=== PATIENT | female | born 1995 | race Caucasian/White ===

== ENCOUNTER 2019-01-21 15:57 | Inpatient (IN) | payer OTHER ==
[2019-01-21 17:00] LABS: Hematocrit 31 % (35-47); Hemoglobin 10.5 g/dL (12.0-16.0); Mean Corpuscular HGB Conc 34 g/dL (31-36); Mean Corpuscular Hemoglobin 29 pg (27-31); Mean Corpuscular Volume 85 fL (80-97); Mean Platelet Volume 7.1 fL (7.4-10.4); Platelet Count 371 10^3/uL (150-450); Red Blood Count 3.63 10^6 /uL (3.70-4.87); Red Cell Distribution Width 14 % (10.5-15); White Blood Count 13.2 10^3/uL (3.5-10.8)
[2019-01-21] MEDS ORDERED: ceFOXitin 2 GM IVPREMIX* 2 GM/50 ML BAG IVPB ONE (17:15)
[2019-01-21] MEDS ORDERED: Buffered Lidocaine 1% SYRIN* 1 ML/SYRINGE INTRADERM ONE (17:15)
[2019-01-21] MEDS ORDERED: Lactated Ringers 1000 ML Bag* 1,000 ML IV ONE (17:15)
[2019-01-21] MEDS ORDERED: ceFOXitin 2 GM IVPREMIX* 2 GM/50 ML BAG ONE (17:23)
[2019-01-21] MEDS ORDERED: Famotidine IV* 10 MG/ML 2 ML (20 mg) ONE (17:23)
--- NOTE | 2019-01-21 17:24 | HP ---
General Information - Reason for Visit cholestasis / desires repeat section desires permanent sterility - General Information Maternal Age: 23 Grav: 3 Para: 2 SAB: 0 IEA: 0 Estimated Due Date: 02/13/19 Determined By: Early Ultrasound Gestational Age in Weeks/Days: 36 5/7 weeks Maternal Blood Type and Rh: A Positive - Results this Serology/RPR Result: Non-Reactive Rubella Result: Immune HBsAg Result: Negative HIV Result: Negative GBS Culture Result: Negative Past Medical History Pertinent Past Medical History: See Records Pertinent Past Surgical History: See Records Pertinent Family History: See Records - Antepartal Records Antepartal Records: Reviewed, Complicated by: - Hep C / cholestasis Review of Systems Constitutional: Comfortable CV Complaint: No Respiratory: Shortness of Breath: No Gastrointestinal: No Nausea/Vomiting Genitourinary: No Dysuria, No Bleeding, No Leaking Fluid Musculoskeletal: No Complaint Neurological: No Headache Movement: Normal Exam Allergies/Adverse Reactions: Allergies MS Meperidine [From Demerol HCl] Allergy (Severe, Verified 06/20/16 17:04) BREATING STOPED AND HR DROPS. Vital Signs 01/21/19 16:10 Temperature 98.6 F Pulse Rate 91 Respiratory 18 Rate Blood Pressure 132/72 (mmHg) O2 Sat by Pulse 99 Oximetry Lab Values - Entire Visit: Laboratory Tests 01/21/19 01/21/19 16:45 16:45 WBC 13.2 H RBC 3.63 L Hgb 10.5 L Hct 31 L MCV 85 MCH 29 MCHC 34 RDW 14 Plt Count 371 MPV 7.1 L Blood Type A Positive - Measurements Height: 4 ft 11 in Weight: 160 lb Weight in lbs: 160.344116 Body Mass Index (BMI): 32.3 Pre- Weight: 160 lb Weight Gained This : 0 lbs and 0 ozs - Exam Breast: Breast Exam Deferred CVA: No CVA Tenderness Extremities: No Edema Heart: Normal Rhythm/Heart Sounds HEENT: No Significant Findings Lungs: Clear Bilaterally Rectal: Rectal Exam Deferred Reflexes: DTR 2+ Thyroid: No Thyromegaly - Abdominal Exam Abdomen Exam: Non-Tender - Ultrasound/Biophysical Profile Ultrasound Status: Not Done Targeted Exam Findings Presenting Part: Vertex Membrane Status: Intact EFM Findings - External Monitor Findings Baseline Heart Rate: 140 External Monitor Findings: Accelerations Present, No Pattern of Variable or Late Decelerations, Variability Moderate Contractions: None Assessment/Plan - Assessment Pt 23 yo with cholestatis of and desires permanent sterility with repeat section . Pt Accepts risk associated with surgery to include but not limited to infection bleeding damage to internal organs , pain scarring , failure of tubal ligation with risk of echoic . Consent form personally reviewed and signed together .All QUESTIONS ANSWERED. - Plan Plan: Antibiotic Prophylaxis, C/S Delivery
[2019-01-21 17:30] LABS: Urine Benzodiazepine Screen None Detected (None Detect); Urine Opiates Screen None Detected (None Detect)
[2019-01-21 17:38] LABS: INR 0.94 (0.82-1.09)
[2019-01-21] MEDS ORDERED: Famotidine IV* 10 MG/ML 2 ML (20 mg) IV ONE (17:39)
[2019-01-21] MEDS ORDERED: Ketorolac INJ* 30 MG/ML 1 ML VIAL ONE (17:45)
[2019-01-21] MEDS ORDERED: OXYTOCIN* 10 UNITS/ML 1 ML VIAL ONE (17:45)
[2019-01-21] MEDS ORDERED: Dexamethasone IV* 4 MG/ML 1 ML (4 MG) ONE (17:45)
[2019-01-21] MEDS ORDERED: Ondansetron INJ* 2 MG/ML VIAL ONE (17:45)
[2019-01-21] MEDS ORDERED: EPHEDrine (Pressors)* 50 MG/ML VIAL ONE (17:45)
[2019-01-21] MEDS ORDERED: Midazolam* 1 MG/ML 5 ML VIAL (5 MG) ONE (17:49)
[2019-01-21] MEDS ORDERED: KETAMINE HCL* 50 MG/ML 10 ML VIAL ONE (17:49)
[2019-01-21] MEDS ORDERED: Morphine PF AMP (0.5MG/ML)* 5 MG/10 ML AMP ONE (17:49)
[2019-01-21] MEDS ORDERED: fentaNYL* 50 MCG/ML 2 ML VIAL (100 MCG VIAL) ONE (17:49)
[2019-01-21] MEDS ORDERED: Lactated Ringers 1000 ML Bag* 1,000 ML IV SCH ×2 (18:00→21:00)
[2019-01-21] MEDS ORDERED: Scopolamine 1.5 mg* PATCH ONE (18:22)
[2019-01-21] MEDS ORDERED: Naloxone* 2 MG in NS 0.9% 250 ML* 250 ML IV PRN (18:31)
[2019-01-21] MEDS ORDERED: oxyCODONE/Acetamin 5/325 MG* TAB PO PRN (18:31)
[2019-01-21] MEDS ORDERED: Ondansetron INJ* 2 MG/ML VIAL IV PRN (18:31)
[2019-01-21] MEDS ORDERED: Naloxone* 0.4 MG/ML 1 ML VIAL IV PRN ×2 (18:31→18:34)
[2019-01-21] MEDS ORDERED: PROCHLORPERAZINE INJ 5 MG/ML 2 ML VIAL IV PRN (18:31)
[2019-01-21] MEDS ORDERED: diPHENhydraMINE IV* 50 MG/ML 1 ml VIAL (BENADRYL) IV PRN (18:31)
[2019-01-21] MEDS ORDERED: Nalbuphine* 10 MG/ML 1 ML VIAL IV PRN (18:31)
[2019-01-21] MEDS ORDERED: Ketorolac INJ* 30 MG/ML 1 ML VIAL IV PRN (18:31)
[2019-01-21] MEDS ORDERED: DiMENhydriNATE IV* 50 MG/ML VIAL IV PUSH PRN (18:31)
[2019-01-21] MEDS ORDERED: fentaNYL* 50 MCG/ML 2 ML VIAL (100 MCG VIAL) IV PRN (18:34)
[2019-01-21] MEDS ORDERED: Witch Hazel PAD* JAR TOPICAL PRN (20:13)
[2019-01-21] MEDS ORDERED: Glycerin ADULT SUPP PR PRN (20:13)
[2019-01-21] MEDS ORDERED: Dibucaine 1% 28.35 GM TUBE PR PRN (20:13)
[2019-01-21] MEDS ORDERED: Oxytocin in LR* 20 UNITS/1,000 ML BAG IVPB SCH (21:00)
[2019-01-21] MEDS: Simethicone TAB* 80 MG TAB.CHEW PO SCH (21:11)
[2019-01-21] MEDS: oxyCODONE/Acetamin 5/325 MG* TAB PO PRN (21:11)
[2019-01-21] MEDS: Docusate CAP* 100 MG PO SCH (21:11)
--- NOTE | 2019-01-22 | OP ---
OPERATIVE REPORT: DATE OF OPERATION: 01/21/19 DATE OF : [birth year] SURGEON: Alexia Owusu MD. BLENDER OPERATOR: Ashlee Goldman MD. SECOND BLENDER OPERATOR: Kassandra Patterson CNM. ANESTHESIOLOGIST: Dr. Castaneda. ANESTHESIA: Spinal. PRE-OP DIAGNOSES: Cholestasis of , intrauterine 36 and 5/7 weeks, desires repeat section, desires permanent sterility. POST-OP DIAGNOSES: Cholestasis of , intrauterine 36 and 5/7 weeks, desires repeat section, desires permanent sterility. Delivered. OPERATIVE PROCEDURES: Repeat low-transverse section and bilateral tubal ligation. IV FLUIDS: 1000 cc of crystalloid. URINE OUTPUT: 800 cc of clear yellow urine. ESTIMATED BLOOD LOSS: 600 cc. FINDINGS: Revealed a vertex male infant with Apgars 9 at 1 minute, 9 at 5 minutes. Nuchal cord x2. No meconium. Weight was 6 pounds. Normal appearing tubes and ovaries bilaterally. Normal appearing placenta, manually extracted, 3-vessel cord intact. Normal appearing uterus. No evidence of adhesi ons. COMPLICATIONS: None apparent. DISPOSITION: Stable to recovery room. DESCRIPTION OF PROCEDURE: The patient was placed in dorsal lithotomy position. The abdomen was prepp ed and draped in sterile standard fashion. After testing to appropriate anesthesia level, an incisio n was made through prior incision with scalpel. This was carried down through the fascia. Fascia wa s scored in the midline, extended laterally and superiorly using Gomez scissors, and superio rly and inferiorly from the rectus muscle with blunt and sharp dissection. The peritoneum was then en tered sharply. With the scalpel, the incision was extended superiorly and inferiorly directly visual izing bowel and bladder. Bladder blade was inserted. Lower uterine segment was identified, tented u p with an Allis. Incision was made with scalpel. This was carried down to the membranes. Clear flui d was noted. The incision was extended laterally and superiorly using bandage scissors. The was delivered vertex. Nuchal cord x2 was reduced. Baby was delivered, vigorous crying with good col or and good heart rate. Cord was allowed to pulse for a minute. The cord was clamped and cut and in harini was handed off to waiting cashier general. Appropriate cord blood was obtained. The placenta was then manually extracted, noted to be intact, 3-vessel cord with a normal appearance. The uterus was exteriorized. Uterine cavity was wiped clean with laparotomy sponge. No evidence of retained placen ta or membranes were noted. The incision itself was reapproximated using 0 Vicryl x2 layers, first l alyssia running locked, second layer running imbricated. The tubal ligation was then carried out first on the left fallopian tube and then in the right fallopian tube. A Payton was placed across the dista l end including the fimbria of the left fallopian tube. A ligature suture, first free tied, with 2-0 Vicryl was placed, and a ligature suture in a Sandra fashion with 2-0 Vicryl. The specimen was then excised. Hemostasis was noted of the pedicle. The same procedure was performed on the right, and h emostasis was noted using 2-0 Vicryl x2. The uterus was returned intraabdominally. Colic gutters we re lavaged. Hemostasis was assured at the hysterotomy site and both fallopian tube sites were identi fied, noted to be hemostatic. The peritoneum was then reapproximated using 3-0 Vicryl in a running f ashion. The subfascial area was visualized. Hemostasis assured and the fascia itself was then reapp roximated using 0 Vicryl x2 in a running fashion. Subcu was lavaged. Hemostasis was assured with Sam vie coagulation and a subcuticular fat stitch was placed using 0 Vicryl in an interrupted fashion. T he skin was then reapproximated using 4-0 Monocryl in a subcuticular fashion. Mastisol and Steri- St rips were applied. All sponge, instrument, and blade counts were correct throughout the case. The p atient tolerated the procedure well and went to recovery room in stable condition. [id number]/[facility] #: [id number]
[2019-01-22] MEDS: oxyCODONE/Acetamin 5/325 MG* TAB PO PRN ×4 (04:41→23:15)
[2019-01-22 06:36] LABS: Hematocrit 28 % (35-47); Hemoglobin 9.5 g/dL (12.0-16.0); Mean Corpuscular HGB Conc 33 g/dL (31-36); Mean Corpuscular Hemoglobin 29 pg (27-31); Mean Corpuscular Volume 86 fL (80-97); Mean Platelet Volume 7.1 fL (7.4-10.4); Platelet Count 322 10^3/uL (150-450); Red Blood Count 3.32 10^6 /uL (3.70-4.87); Red Cell Distribution Width 14 % (10.5-15); White Blood Count 25.2 10^3/uL (3.5-10.8)
[2019-01-22 07:49] LABS: ABS Lymphocytes 2.4 10^3/ul (1.0-4.8); ABS Monocytes 1.1 10^3/ul (0-0.8); ABS Neutrophils 21.6 10^3/ul (1.5-7.7); Lymphocyte % 9.6 %
[2019-01-22] MEDS: Ibuprofen TAB* 600 MG PO PRN ×3 (08:48→21:35)
[2019-01-22] MEDS: Simethicone TAB* 80 MG TAB.CHEW PO SCH ×4 (08:48→21:35)
[2019-01-22] MEDS: Docusate CAP* 100 MG PO SCH ×3 (08:48→19:43)
[2019-01-22] MEDS: Ferrous Gluconate TAB* 324 MG TAB PO SCH ×2 (09:20→19:43)
[2019-01-23] MEDS: Ibuprofen TAB* 600 MG PO PRN ×3 (03:38→19:24)
[2019-01-23] MEDS: Simethicone TAB* 80 MG TAB.CHEW PO SCH ×3 (08:50→21:41)
[2019-01-23] MEDS: Ferrous Gluconate TAB* 324 MG TAB PO SCH ×2 (08:50→21:41)
[2019-01-23] MEDS: Docusate CAP* 100 MG PO SCH ×3 (08:50→21:41)
[2019-01-23] MEDS: Acetaminophen TAB* 325 MG PO PRN ×3 (08:55→19:25)
[2019-01-23] MEDS: oxyCODONE/Acetamin 5/325 MG* TAB PO PRN (21:40)
[2019-01-24] MEDS: Ibuprofen TAB* 600 MG PO PRN (03:26)
[2019-01-24] MEDS: oxyCODONE/Acetamin 5/325 MG* TAB PO PRN (03:26)
[2019-01-24] MEDS: Docusate CAP* 100 MG PO SCH (07:51)
[2019-01-24] MEDS: Ferrous Gluconate TAB* 324 MG TAB PO SCH (07:51)
[2019-01-24] MEDS: Simethicone TAB* 80 MG TAB.CHEW PO SCH (07:52)
[2019-01-24 08:56] VITALS: BP 95/47
[2019-01-24] MEDS ORDERED: Scopolamine PATCH Remove* 1 NOTE MISC PATCH OFF PRN (18:32)
== END 2019-01-24 11:28 | disposition home or self-care (01) | DRG 540 ==
LOC: MCHOBOUT 15:57 → MCHOB 16:54
PROVIDERS: ADMIT Obstetrics & Gynecology; ATTEND Obstetrics & Gynecology
PROC: 0UB70ZZ Excision of Bilateral Fallopian Tubes, Open Approach (ICD-10-PCS; 2019-01-21)
PROC: 10D00Z1 Extraction of Products of Conception, Low, Open Approach (ICD-10-PCS; principal; 2019-01-21 18:11)
DX: O26.62 Liver and biliary tract disorders in childbirth (principal); K83.1 Obstruction of bile duct; O98.42 Viral hepatitis complicating childbirth; O99.324 Drug use complicating childbirth; B19.20 Unspecified viral hepatitis C without hepatic coma; F12.90 Cannabis use, unspecified, uncomplicated; O69.81X0 Labor and delivery complicated by cord around neck, without compression, not applicable or unspecified; Z3A.36 36 weeks gestation of pregnancy; Z37.0 Single live birth; Z30.2 Encounter for sterilization; Z87.891 Personal history of nicotine dependence
CPT/HCPCS: 36415; 80307; 85025; 85027; 85610; 86850; 86900; 86901; 87522; 88302; A9270-GY; J0694; J1100; J1885; J2250; J2405; J2590; J3010